=== PATIENT | female | born 1965 | race Caucasian/White ===

== ENCOUNTER 2018-03-27 11:55 | Emergency (ER) | payer MEDICAID ==
[~2018-03-27] VITALS: Ht 162.6 cm; Wt 63.5 kg
[2018-03-27] MEDS ORDERED: MORPHINE 4 MG/ML INJ. SYRINGE IM ONE (12:45)
== END 2018-03-27 13:41 | disposition home or self-care (01) ==
LOC: SED 11:55
DX: L53.8 Other specified erythematous conditions (principal); R22.31 Localized swelling, mass and lump, right upper limb; M79.7 Fibromyalgia; F32.9 Major depressive disorder, single episode, unspecified; F41.9 Anxiety disorder, unspecified; F17.210 Nicotine dependence, cigarettes, uncomplicated; R03.0 Elevated blood-pressure reading, without diagnosis of hypertension; Z90.710 Acquired absence of both cervix and uterus
CPT/HCPCS: 96372; 99283; J2270

== ENCOUNTER 2018-04-06 14:48 | Emergency (ER) | payer MEDICAID ==
[~2018-04-06] VITALS: Ht 162.6 cm; Wt 63.5 kg
[2018-04-06 14:58] VITALS: BP_SYST 132
[2018-04-06] MEDS: KETOROLAC TROMETHAMINE 60 MG/2 ML VIAL IM ONE (15:30)
[2018-04-06] MEDS: LORazepam 1 MG TABLET PO ONE (15:30)
[2018-04-06 16:16] VITALS: BP_SYST 128
== END 2018-04-06 16:16 | disposition home or self-care (01) ==
LOC: SED 14:48
DX: G89.29 Other chronic pain (principal); M79.631 Pain in right forearm; R03.0 Elevated blood-pressure reading, without diagnosis of hypertension; M79.7 Fibromyalgia; F32.9 Major depressive disorder, single episode, unspecified; F41.9 Anxiety disorder, unspecified; E78.5 Hyperlipidemia, unspecified; Z90.710 Acquired absence of both cervix and uterus; Z87.891 Personal history of nicotine dependence
CPT/HCPCS: 96372; 99283; J1885

== ENCOUNTER 2019-03-19 18:29 | Emergency (ER) | payer MEDICAID ==
[~2019-03-19] VITALS: Ht 162.6 cm; Wt 63.5 kg
[2019-03-19 19:40] VITALS: BP_SYST 126
--- NOTE | 2019-03-19 19:58 | NUR ---
Pt ambulatory to bed 8 for evaluation
--- NOTE | 2019-03-19 20:00 | NUR ---
Visual Acuity on OU: 20/40
--- NOTE | 2019-03-19 20:05 | NUR ---
Dr. Tovar bedside for Pt eval
[2019-03-19] MEDS ORDERED: MORPHINE 4 MG/ML INJ. SYRINGE IM ONE (20:15)
[2019-03-19] MEDS ORDERED: DIPHENHYDRAMINE INJ 50 MG/ML VIAL IM ONE (20:15)
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
--- NOTE | 2019-03-19 21:00 | NUR ---
PD bedside, report officially taken
[2019-03-19 21:35] VITALS: BP_SYST 126
--- NOTE | 2019-03-19 21:35 | NUR ---
Patient given written and verbal discharge instructions and verbalizes understanding. ER MD discussed with patient the results and treatment provided. Patient in stable condition. ID arm band removed. Rx of tylenol and visine given. Patient educated on pain management and to follow up with PMD. Pain Scale 0/10 Opportunity for questions provided and answered. Medication side effect fact sheet provided.
== END 2019-03-19 21:35 | disposition home or self-care (01) ==
LOC: SED 18:29
DX: S00.12XA Contusion of left eyelid and periocular area, initial encounter (principal); S09.8XXA Other specified injuries of head, initial encounter; H57.12 Ocular pain, left eye; H11.32 Conjunctival hemorrhage, left eye; Z71.6 Tobacco abuse counseling; Y92.89 Other specified places as the place of occurrence of the external cause; X58.XXXA Exposure to other specified factors, initial encounter; Y07.9 Unspecified perpetrator of maltreatment and neglect; Y93.89 Activity, other specified; Y92.9 Unspecified place or not applicable; F17.210 Nicotine dependence, cigarettes, uncomplicated
CPT/HCPCS: 70486; 96372; 99284; J1200; J2270